=== PATIENT | female | born 1940 | race Caucasian/White ===

== ENCOUNTER 2021-08-25 21:26 | Emergency (ER) | payer MEDICARE ==
[~2021-08-25] VITALS: Ht 152.4 cm; Wt 50.9 kg
[2021-08-25 23:57] VITALS: BP 165/85
== END 2021-08-25 23:58 | disposition home or self-care (01) ==
LOC: M ED 21:26
DX: S02.2XXA Fracture of nasal bones, initial encounter for closed fracture (principal); S00.511A Abrasion of lip, initial encounter; S00.83XA Contusion of other part of head, initial encounter; W01.0XXA Fall on same level from slipping, tripping and stumbling without subsequent striking against object, initial encounter; Y92.511 Restaurant or cafe as the place of occurrence of the external cause